=== PATIENT | male | born 1985 | race Hispanic/Latino ===

== ENCOUNTER 2017-07-17 15:30 | Emergency (ER) | payer BC ==
[2017-07-17 15:35] VITALS: RESP 16; TEMP 98.1
[2017-07-17] MEDS ORDERED: DiphenhydrAMINE 50 mg/ml Inj ONE (15:45)
[2017-07-17] MEDS ORDERED: Albuterol-Ipratrop 3 mg / 0.5 (3 ml) UD ONE ×2 (15:46→16:52)
[2017-07-17] MEDS ORDERED: Albuterol-Ipratrop 3 mg / 0.5 (3 ml) UD INH STA ×2 (15:48→16:43)
[2017-07-17] MEDS ORDERED: Sodium Chloride 0.9% 1,000 ML IV STA (15:48)
--- NOTE | 2017-07-17 15:58 | ED PDOC ---
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 Patient reports of eating a meal with pesto sauce roughly 2.5 hours ago and began to feel "funny". He then had some facial swelling along with shortness of breath. Of note, patient took 2 Benadryl an hour after eating the pesto sauce with mild relief. Past Medical History Reviewed: Historical Data, Nursing Documentation, Vital Signs Vital Signs: Last Vital Signs Temp 98.1 F 07/17/17 15:32 Pulse 68 07/17/17 15:32 Resp 16 07/17/17 15:32 BP 100/52 L 07/17/17 15:32 Pulse Ox 100 07/17/17 15:32 - Medical History PMH: Asthma (as a kid) - Surgical History Surgical History: No Surg Hx - Family History Family History: States: Unknown Family Hx - Social History Current smoker - smoking cessation education provided: No Ex-Smoker (has not smoked in the last 12 months): No Alcohol: None Drugs: Denies - Allergies Allergies/Adverse Reactions: Allergies Allergy/AdvReac Type Severity Reaction Status Date / Time shellfish derived Allergy SHORTNESS Verified 07/17/17 15:32 OF BREATH tree nut Allergy SHORTNESS Verified 07/17/17 15:32 OF BREATH Review of Systems ROS Statement: Except As Marked, All Systems Reviewed And Found Negative Constitutional: Positive for: Other (allergic reaction, facial swelling) Respiratory: Positive for: Shortness of Breath Physical Exam - Reviewed Nursing Documentation Reviewed: Yes Vital Signs Reviewed: Yes - Physical Exam Appears: Positive for: Non-toxic, No Acute Distress Head Exam: Positive for: ATRAUMATIC, NORMOCEPHALIC Skin: Positive for: Normal Color, Warm Eye Exam: Positive for: Normal appearance, EOMI, PERRL ENT: Positive for: Normal ENT Inspection, Pharynx Is (Clear), Other (no drooling ). Negative for: Pharyngeal Erythema, Tonsillar Exudate, Tonsillar Swelling Neck: Positive for: Normal, Painless ROM, Supple Cardiovascular/Chest: Positive for: Regular Rate, Rhythm. Negative for: Murmur Respiratory: Positive for: Respiratory Distress (mild respiratory distress), Other Gastrointestinal/Abdominal: Positive for: Normal Exam, Soft. Negative for: Tenderness Back: Positive for: Normal Inspection Extremity: Positive for: Normal ROM, Swelling (facial swelling). Negative for: Pedal Edema, Deformity Neurologic/Psych: Positive for: Alert, Oriented. Negative for: Motor/Sensory Deficits - ECG O2 Sat by Pulse Oximetry: 100 (RA) Pulse Ox Interpretation: Normal - Progress Re-evaluation Time: 16:43 Condition: Improved (Feels much better.) Disposition - Disposition Forms: [employer] ([place]) Medical Decision Making Medical Decision Making: Time: --15:48 Impression: --allergic reaction Plan: --Albuterol 3ml INH --Famotidine 20mg IVP --methylprednisolone 125mg IVP --IV Fluids --Peak Flow Pre/Post TX Reassess -- Scribe Attestation: Documented by Peter Thomson acting as a scribe for Luh Mayen MD.
[2017-07-17 18:30] VITALS: BP 126/65; PULSE 91; O2SAT 96
== END 2017-07-17 19:00 | disposition home or self-care (01) ==
LOC: H.ER 15:30
DX: T78.40XA Allergy, unspecified, initial encounter (principal); J45.909 Unspecified asthma, uncomplicated; Z87.891 Personal history of nicotine dependence
CPT/HCPCS: 94640; 96361; 96374; 96375; 99283; J2930; J7040